=== PATIENT | male | born 1945 | race Caucasian/White ===

== ENCOUNTER → 2018-10-20 | Outpatient (CLI) | payer MEDICARE | END | disposition home or self-care (01) | LOC: CFH 08:57 | PROVIDERS: ATTEND Nurse Practitioner | DX: Z13.6 Encounter for screening for cardiovascular disorders (principal); Z87.891 Personal history of nicotine dependence | CPT/HCPCS: 76706 ==

== ENCOUNTER 2019-04-06 12:12 | Outpatient (CLI) | payer MEDICARE ==
[2019-04-06 14:11] LABS: BASOPHILS # (AUTO) 0.04 x10^3/uL (0-0.1); BASOPHILS % (AUTO) 1 % (0-1); EOSINOPHILS # (AUTO) 0.11 x10^3/uL (0-0.4); EOSINOPHILS % (AUTO) 1 % (1-7); LYMPHOCYTES # (AUTO) 1.65 x10^3/uL (1-3.4); LYMPHOCYTES % (AUTO) 22 % (22-44); MD NO; MEAN CORPUSCULAR HEMOGLOBIN 34.7 pg (27.5-34.5); MEAN CORPUSCULAR HGB CONC 33.5 g/dL (33.2-36.2); MEAN CORPUSCULAR VOLUME 103.4 fL (81-97); MEAN PLATELET VOLUME 7.2 fL (7.4-10.4); MONOCYTES # (AUTO) 0.51 x10^3/uL (0.2-0.8); MONOCYTES % (AUTO) 7 % (2-9); NEUTROPHILS # (AUTO) 5.18 x10^3/uL (1.8-6.8); NEUTROPHILS % (AUTO) 69 % (42-75); PLATELET COUNT 220 x10^3/uL (130-400); RED BLOOD COUNT 4.64 x10^6/uL (4.38-5.82); RED CELL DISTRIBUTION WIDTH 12.9 % (9.4-14.8)
[2019-04-06 14:17] LABS: ALANINE AMINOTRANSFERASE 34 U/L (12-78); ALBUMIN 3.8 g/dL (3.4-5.0); ANION GAP 5 mmol/L (5-15); CHLORIDE 104 mmol/L (98-107); CREATININE 1.04 mg/dL (0.7-1.3)
[2019-04-06 14:19] LABS: ALKALINE PHOSPHATASE 53 U/L (45-117); BILIRUBIN,TOTAL 1.2 mg/dL (0.2-1.0); TOTAL PROTEIN 7.3 g/dL (6.4-8.2)
[2019-04-06 14:36] LABS: INTERNATIONAL NORMALIZED RATIO 0.96 (0.93-1.1); PROTHROMBIN TIME 10.1 Seconds (9.6-11.5)
[2019-04-06 14:46] LABS: MICROSCOPIC NOT IND
[2019-04-06 14:49] LABS: CULTURE INDICATED? NO
== END 2019-04-06 23:59 | disposition home or self-care (01) ==
LOC: STAR 12:12 → RAD 23:59
PROVIDERS: ATTEND Orthopaedic Surgery Orthopaedic Surgery of the Spine
DX: Z01.811 Encounter for preprocedural respiratory examination (principal); J98.4 Other disorders of lung
CPT/HCPCS: 36415; 71046; 80053; 81003; 85025; 85610; 85730; 93005

== ENCOUNTER 2019-04-11 07:40 | Inpatient (IN) | payer MEDICARE ==
[~2019-04-11] VITALS: Ht 181.6 cm; Wt 82.1 kg
[2019-04-11] MEDS ORDERED: ACYC-114 PO (08:10)
[2019-04-11] MEDS ORDERED: LISI-170 PO (08:10)
[2019-04-11] MEDS ORDERED: MAGN400O7 PO (08:10)
[2019-04-11] MEDS ORDERED: GABA300C10 PO (08:10)
[2019-04-11] MEDS ORDERED: LACTATED RINGERS 1,000 ML IV SCH (08:11)
[2019-04-11] MEDS ORDERED: THROMBIN 5,000 UNIT VIAL TP ONE (08:59)
[2019-04-11] MEDS ORDERED: BUPIVACAINE/PF 0.25% ONE (08:59)
[2019-04-11] MEDS ORDERED: TOBRAMYCIN SULFATE 1.2 GM IMP ONE (08:59)
[2019-04-11] MEDS ORDERED: LIDOCAINE/PF 0.5% ,50ML ONE (08:59)
[2019-04-11] MEDS ORDERED: EPINEPHRINE 1 MG/ML, 1ML ONE (09:00)
[2019-04-11] MEDS ORDERED: MIDAZOLAM 1 MG/ML, 2ML ONE (09:20)
[2019-04-11] MEDS ORDERED: FENTANYL PF 250 MCG/5ML ONE ×2 (09:27→12:18)
[2019-04-11] MEDS: VANCOMYCIN 1,000 MG ONE ×2 (10:35→10:36)
[2019-04-11] MEDS ORDERED: HYDROmorphone 2 MG/ML, 1ML ONE (12:14)
[2019-04-11] MEDS ORDERED: OXYcodone 5 MG/5 ML ORAL.SOL UDC ONE (12:14)
[2019-04-11] MEDS ORDERED: ONDANSETRON 2MG/ML, 2ML ONE (12:18)
[2019-04-11] MEDS ORDERED: DEXAMETHASONE 4 MG/ML, 1ML ONE (12:18)
[2019-04-11] MEDS ORDERED: GLYCOPYRROLATE 0.2MG/1ML, 5ML ONE (12:18)
[2019-04-11] MEDS ORDERED: SUCCINYLCHOLINE 20 MG/ML, 10ML ONE (12:18)
[2019-04-11] MEDS ORDERED: ROCURONIUM 10MG/ML,5ML ONE (12:18)
[2019-04-11] MEDS ORDERED: PROPOFOL 10 MG/ML, 20ML ONE (12:18)
[2019-04-11] MEDS ORDERED: CEFAZOLIN 1,000 MG ONE (12:18)
[2019-04-11] MEDS ORDERED: NEOSTIGMINE 1 MG/ML, 10ML ONE (12:18)
[2019-04-11] MEDS ORDERED: MEPERIDINE/PF 25MG/0.5ML IVPush PRN (12:30)
[2019-04-11] MEDS ORDERED: ACETAMINOPHEN 325 MG TABLET PO PRN (12:30)
[2019-04-11] MEDS ORDERED: hydrALAzine 20 MG/ML, 1ML IV PRN (12:30)
[2019-04-11] MEDS ORDERED: PROMETHAZINE 25 MG/ML, 1ML IV PRN (12:30)
[2019-04-11] MEDS ORDERED: DIAZEPAM 5 MG/ML, 2ML IVPush PRN (12:30)
[2019-04-11] MEDS ORDERED: ALBUTEROL SULFATE 2.5 MG/3 ML NPPB PRN (12:30)
[2019-04-11] MEDS ORDERED: FENTANYL PF 100 MCG/2ML IV PRN (12:30)
[2019-04-11] MEDS ORDERED: KETOROLAC 30 MG/1 ML IV PRN (12:30)
[2019-04-11] MEDS ORDERED: LABETALOL 5MG/ML, 20ML IV PRN (12:30)
[2019-04-11] MEDS ORDERED: OXYcodone 5 MG/5 ML ORAL.SOL UDC PO PRN (12:30)
[2019-04-11] MEDS: HYDROmorphone 2 MG/ML, 1ML IVPush PRN ×3 (12:36→12:50)
[2019-04-11] MEDS ORDERED: METHOCARBAMOL 1,000 MG in DEXTROSE 5% 100 ML IV ONE (13:00)
[2019-04-11 13:49] VITALS: BP 124/65
[2019-04-11] MEDS ORDERED: MAGNESIUM HYDROXIDE 8%, 30ML UDC PO PRN (14:00)
[2019-04-11] MEDS ORDERED: BISACODYL 10 MG SUPP PR PRN (14:00)
[2019-04-11] MEDS ORDERED: HYDROcodone/APAP 10/325 MG TABLET PO PRN (14:00)
[2019-04-11] MEDS ORDERED: ONDANSETRON 2MG/ML, 2ML IV PRN (14:00)
[2019-04-11] MEDS ORDERED: morphine SULFATE 10 MG/ML, 1ML IV PRN (14:00)
[2019-04-11] MEDS ORDERED: PROMETHAZINE 25 MG/ML, 1ML IM PRN (14:00)
[2019-04-11] MEDS: D5%-0.9% NACL+KCL 20MEQ 1,000 ML IV SCH (15:15)
[2019-04-11] MEDS: GABAPENTIN 300 MG CAPSULE PO SCH ×2 (16:08→21:27)
[2019-04-11] MEDS: CEFAZOLIN PMX 1GM/50ML 50 ML IVPB SCH (17:14)
[2019-04-11 20:10] VITALS: BP 124/75
[2019-04-11] MEDS: METHOCARBAMOL 750 MG in DEXTROSE 5% 100 ML IV SCH (21:26)
[2019-04-11] MEDS: SENNA/DOCUSATE TABLET PO SCH (21:27)
[2019-04-12 00:09] VITALS: BP 125/82
[2019-04-12] MEDS: CEFAZOLIN PMX 1GM/50ML 50 ML IVPB SCH (01:54)
[2019-04-12 04:06] VITALS: BP 104/61
[2019-04-12 05:13] LABS: BASOPHILS # (AUTO) 0.05 x10^3/uL (0-0.1); BASOPHILS % (AUTO) 1 % (0-1); EOSINOPHILS # (AUTO) 0.02 x10^3/uL (0-0.4); EOSINOPHILS % (AUTO) 0 % (1-7); LYMPHOCYTES # (AUTO) 0.95 x10^3/uL (1-3.4); LYMPHOCYTES % (AUTO) 11 % (22-44); MD NO; MEAN CORPUSCULAR HEMOGLOBIN 34.2 pg (27.5-34.5); MEAN CORPUSCULAR HGB CONC 33.1 g/dL (33.2-36.2); MEAN CORPUSCULAR VOLUME 103.1 fL (81-97); MEAN PLATELET VOLUME 7.4 fL (7.4-10.4); MONOCYTES # (AUTO) 0.65 x10^3/uL (0.2-0.8); MONOCYTES % (AUTO) 8 % (2-9); NEUTROPHILS # (AUTO) 6.68 x10^3/uL (1.8-6.8); NEUTROPHILS % (AUTO) 80 % (42-75); PLATELET COUNT 209 x10^3/uL (130-400); RED BLOOD COUNT 3.83 x10^6/uL (4.38-5.82); RED CELL DISTRIBUTION WIDTH 12.5 % (9.4-14.8)
[2019-04-12] MEDS: METHOCARBAMOL 750 MG in DEXTROSE 5% 100 ML IV SCH ×2 (05:15→13:00)
[2019-04-12 05:16] LABS: CALCIUM 7.9 mg/dL (8.5-10.1); CHLORIDE 104 mmol/L (98-107)
[2019-04-12 05:20] LABS: ANION GAP 6 mmol/L (5-15); CREATININE 0.89 mg/dL (0.7-1.3)
[2019-04-12] MEDS: HYDROcodone/APAP 5/325 TABLET PO PRN ×5 (05:38→21:09)
[2019-04-12 07:39] VITALS: BP 113/65
[2019-04-12] MEDS: LISINOPRIL 20 MG TABLET PO SCH (08:39)
[2019-04-12] MEDS: SENNA/DOCUSATE TABLET PO SCH ×2 (08:39→21:10)
[2019-04-12] MEDS: GABAPENTIN 300 MG CAPSULE PO SCH ×3 (08:39→21:09)
[2019-04-12] MEDS: ACYCLOVIR 400 MG TABLET PO SCH (08:39)
[2019-04-12] MEDS: D5%-0.9% NACL+KCL 20MEQ 1,000 ML IV SCH ×3 (10:00→20:00)
[2019-04-12] MEDS ORDERED: METHOCARBAMOL 750 MG TABLET ONE (13:03)
[2019-04-12] MEDS: METHOCARBAMOL 750 MG TABLET PO SCH ×2 (13:05→21:10)
[2019-04-12 13:59] VITALS: BP 111/68
[2019-04-12 20:11] VITALS: BP 99/50
[2019-04-13] MEDS: HYDROcodone/APAP 5/325 TABLET PO PRN ×5 (01:19→21:36)
[2019-04-13 02:20] VITALS: BP 124/65
[2019-04-13] MEDS: METHOCARBAMOL 750 MG TABLET PO SCH ×2 (05:43→16:30)
[2019-04-13] MEDS: D5%-0.9% NACL+KCL 20MEQ 1,000 ML IV SCH ×2 (05:43→16:00)
[2019-04-13 06:10] LABS: BASOPHILS # (AUTO) 0.03 x10^3/uL (0-0.1); BASOPHILS % (AUTO) 1 % (0-1); EOSINOPHILS # (AUTO) 0.08 x10^3/uL (0-0.4); EOSINOPHILS % (AUTO) 1 % (1-7); LYMPHOCYTES # (AUTO) 1.71 x10^3/uL (1-3.4); LYMPHOCYTES % (AUTO) 25 % (22-44); MD NO; MEAN CORPUSCULAR HGB CONC 33.5 g/dL (33.2-36.2); MEAN CORPUSCULAR VOLUME 104.3 fL (81-97); MEAN PLATELET VOLUME 7.9 fL (7.4-10.4); MONOCYTES # (AUTO) 0.62 x10^3/uL (0.2-0.8); MONOCYTES % (AUTO) 9 % (2-9); NEUTROPHILS # (AUTO) 4.55 x10^3/uL (1.8-6.8); NEUTROPHILS % (AUTO) 65 % (42-75); PLATELET COUNT 208 x10^3/uL (130-400); RED BLOOD COUNT 3.82 x10^6/uL (4.38-5.82); RED CELL DISTRIBUTION WIDTH 12.8 % (9.4-14.8)
[2019-04-13 06:22] LABS: CHLORIDE 105 mmol/L (98-107)
[2019-04-13 06:31] LABS: ANION GAP 7 mmol/L (5-15); CALCIUM 8.3 mg/dL (8.5-10.1); CREATININE 0.88 mg/dL (0.7-1.3)
[2019-04-13 07:35] VITALS: BP 114/64
[2019-04-13] MEDS: GABAPENTIN 300 MG CAPSULE PO SCH ×3 (08:22→21:36)
[2019-04-13] MEDS: SENNA/DOCUSATE TABLET PO SCH ×2 (08:22→21:36)
[2019-04-13] MEDS: LISINOPRIL 20 MG TABLET PO SCH (08:23)
[2019-04-13] MEDS: ACYCLOVIR 400 MG TABLET PO SCH (08:23)
[2019-04-13 13:26] VITALS: BP 111/64
[2019-04-13] MEDS ORDERED: METHOCARBAMOL 750 MG TABLET PO SCH (14:00)
[2019-04-13] MEDS ORDERED: HYDR-3240 PO (18:15)
[2019-04-13] MEDS ORDERED: METH750T87 PO (18:16)
[2019-04-13 19:45] VITALS: BP 115/68
[2019-04-14] MEDS: METHOCARBAMOL 750 MG TABLET PO SCH ×2 (00:51→08:18)
[2019-04-14 01:54] VITALS: BP 127/70
[2019-04-14] MEDS: D5%-0.9% NACL+KCL 20MEQ 1,000 ML IV SCH ×2 (02:00→08:19)
[2019-04-14] MEDS: HYDROcodone/APAP 5/325 TABLET PO PRN (05:15)
[2019-04-14 07:59] VITALS: BP 126/72
[2019-04-14] MEDS: LISINOPRIL 20 MG TABLET PO SCH (08:18)
[2019-04-14] MEDS: ACYCLOVIR 400 MG TABLET PO SCH (08:18)
[2019-04-14] MEDS: GABAPENTIN 300 MG CAPSULE PO SCH (08:18)
[2019-04-14] MEDS: SENNA/DOCUSATE TABLET PO SCH (08:18)
[2019-04-14] MEDS ORDERED: HYDR-3240 PO (09:40)
[2019-04-14] MEDS ORDERED: HYDROcodone/APAP 5/325 TABLET PO PRN (10:54)
== END 2019-04-14 10:54 | disposition home or self-care (01) | DRG 460 ==
LOC: ORIP 07:40 → 4NOR 13:40 → DCLOUNGE 04-14 10:36
PROVIDERS: ADMIT Orthopaedic Surgery Orthopaedic Surgery of the Spine; ATTEND Orthopaedic Surgery Orthopaedic Surgery of the Spine
PROC: 01NB0ZZ Release Lumbar Nerve, Open Approach (ICD-10-PCS; 2019-04-11)
PROC: 3E0U0GB Introduction of Recombinant Bone Morphogenetic Protein into Joints, Open Approach (ICD-10-PCS; 2019-04-11)
PROC: 01NR0ZZ Release Sacral Nerve, Open Approach (ICD-10-PCS; 2019-04-11)
PROC: 0SG3071 Fusion of Lumbosacral Joint with Autologous Tissue Substitute, Posterior Approach, Posterior Column, Open Approach (ICD-10-PCS; principal; 2019-04-11 11:00)
DX: M48.07 Spinal stenosis, lumbosacral region (principal); I10 Essential (primary) hypertension; M48.061 Spinal stenosis, lumbar region without neurogenic claudication; M35.3 Polymyalgia rheumatica; M43.16 Spondylolisthesis, lumbar region; Z91.018 Allergy to other foods; Z79.899 Other long term (current) drug therapy
CPT/HCPCS: 36415; 72100; 80048; 85025; C1713; G0378; J0171; J0690; J1100; J1170; J2001; J2250; J2270; J2405; J2704; J2710; J3010; J3260; J3370; J3490; C1762; J0330; J2800; J3480; J7120

== ENCOUNTER 2019-11-11 12:10 | Outpatient (CLI) | payer MEDICARE ==
[~2019-11-11 12:10] MED LIST: ACYC-114 PO; GABA300C10 PO; HYDR-3240 PO; LISI-170 PO; MAGN400O7 PO; METH750T87 PO
== END 2019-11-11 23:59 | disposition home or self-care (01) ==
LOC: CVU 12:10
PROVIDERS: ATTEND Orthopaedic Surgery Orthopaedic Surgery of the Spine
DX: I70.203 Unspecified atherosclerosis of native arteries of extremities, bilateral legs (principal)
CPT/HCPCS: 93922; 93925